=== PATIENT | male | born 2000 | race Two or more races ===

== ENCOUNTER 2020-03-10 14:04 | Outpatient (REF) | payer OTHER, SELFPAY | END 2020-03-10 14:05 | disposition home or self-care (01) | LOC: HO.LAB 14:04 | PROVIDERS: Visit Provider Internal Medicine | DX: Z20.828 Contact with and (suspected) exposure to other viral communicable diseases (principal) | CPT/HCPCS: C9803; U0003 ==

== ENCOUNTER 2020-04-06 13:06 | Outpatient (REF) | payer OTHER, SELFPAY ==
[2020-04-06 13:54] LABS: COVID-19 Test Negative (Negative)
== END 2020-04-06 13:07 | disposition home or self-care (01) ==
LOC: HO.LAB 13:06
PROVIDERS: PCP Internal Medicine; Visit Provider Internal Medicine
DX: Z20.822 Contact with and (suspected) exposure to COVID-19 (principal)
CPT/HCPCS: 87635; C9803